=== PATIENT | male | born 1990 | race Caucasian/White ===

== ENCOUNTER 2020-05-14 21:52 | Emergency (ER) | payer BC ==
--- NOTE | 2020-05-14 21:58 | PDOC ---
Rapid Medical Evaluation Chief Complaint: Laceration Time Seen by Provider: 05/14/20 21:55 Medical Evaluation: 05/14/20 21:55 29 year old male c/o laceration to left index finger after stick finger in a flour blender at home at 8 pm Tetnus up to date PE: patient alert ox3. left index finger tip irregular laceration A: laceration P: patient to the ER for further management of care. Discharge Disposition - Diagnosis Finger laceration Qualifiers: Encounter type: initial encounter Finger: index finger Damage to nail status: without damage Foreign body presence: without foreign body Laterality: left Qualified Code(s): S61.211A - Laceration without foreign body of left index finger without damage to nail, initial encounter - Referrals - Patient Instructions - Post Discharge Activity
[2020-05-14 22:08] VITALS: BP 115/72; PULSE 63; TEMP 97.7; BMI 25.0
--- NOTE | 2020-05-14 22:19 | PDOC ---
History of Present Illness - General Chief Complaint: Laceration Stated Complaint: L HAND INDEX FINGER INJURY Time Seen by Provider: 05/14/20 21:55 History Source: Patient - History of Present Illness Initial Comments: 05/14/20 22:20 29 year old reports that he cut his left index finger while using director advanced. no pmhx tetanus up to date. Past History - Medical History Allergies/Adverse Reactions: Allergies Allergy/AdvReac Type Severity Reaction Status Date / Time No Known Allergies Allergy Verified 05/14/20 21:59 COPD: No - Immunization History Immunization Up to Date: Yes - Psycho-Social/Smoking History Smoking History: Never smoked - Substance Abuse Hx (Audit-C & DAST Scrn) How often the patient has a drink containing alcohol: Monthly or less Score: In Men: 4 or > Positive; In Women: 3 or > Positive: 1 Screen Result (Pos requires Nsg. Audit-10AR): Negative *Physical Exam - Vital Signs Last Vital Signs Temp Pulse Resp BP Pulse Ox 97.7 F 63 18 115/72 99 05/14/20 21:55 05/14/20 21:55 05/14/20 21:55 05/14/20 21:55 05/14/20 21:55 - Physical Exam General Appearance: Yes: Appropriately Dressed Extremity: positive: Normal Capillary Refill, Normal Inspection, Normal Range of Motion Integumentary: positive: Normal Color, Dry, Warm, Other (left index finger laceration ~ 2.5 cm) Neurologic: positive: Fully Oriented, Alert ED Progress Note - Progress Note Progress Note: A: left index finger laceration P: see procedure note by Dr. Casanova Discharge - Discharge Information Problems reviewed: Yes Clinical Impression/Diagnosis: Finger laceration Qualifiers: Encounter type: initial encounter Finger: index finger Damage to nail status: without damage Foreign body presence: without foreign body Laterality: left Qualified Code(s): S61.211A - Laceration without foreign body of left index finger without damage to nail, initial encounter Laceration of left index finger Qualifiers: Encounter type: initial encounter Damage to nail status: unspecified Foreign body presence: without foreign body Qualified Code(s): S61.211A - Laceration without foreign body of left index finger without damage to nail, initial encounter Disposition: HOME - Follow up/Referral Referrals: Jaleel Casanova MD [Staff Physician] - - Patient Discharge Instructions Patient Printed Discharge Instructions: DI for Laceration Repair Additional Instructions: please follow up with Dr. casanova. keep wound clean and dry - Post Discharge Activity
== END 2020-05-14 22:28 | disposition home or self-care (01) ==
LOC: JER 21:52 → JERFT 21:52
DX: S61.211A Laceration without foreign body of left index finger without damage to nail, initial encounter (principal); W26.8XXA Contact with other sharp object(s), not elsewhere classified, initial encounter
CPT/HCPCS: 99282-25